=== PATIENT | male | born 1970 | race Caucasian/White ===

== ENCOUNTER → 2017-03-04 | Outpatient (CLI) | payer BC ==
[~2017-03-04] MED LIST: ZESTRIL10 M1 PO; ZYRTEC10 M3 PO
[2017-03-04 10:43] VITALS: BP 128/65
== END ==
LOC: AMSURD 10:33
DX: Z82.49 Family history of ischemic heart disease and other diseases of the circulatory system (principal)

== ENCOUNTER 2018-01-05 12:48 | Emergency (ER) | payer BC ==
[~2018-01-05] VITALS: Ht 193 cm; Wt 136.4 kg
[2018-01-05 12:53] VITALS: BP 144/90
[2018-01-05] MEDS ORDERED: CHILDREN'S ASPI81 M1 PO (12:55)
== END 2018-01-05 13:30 | disposition home or self-care (01) ==
LOC: ED 12:48
DX: S61.210A Laceration without foreign body of right index finger without damage to nail, initial encounter (principal); W45.8XXA Other foreign body or object entering through skin, initial encounter; Y93.89 Activity, other specified; Y92.090 Kitchen in other non-institutional residence as the place of occurrence of the external cause

== ENCOUNTER → 2019-03-29 | Day surgery (SDC) | payer BC ==
[~2019-03-29] MED LIST changes: +CHILDREN'S ASPI81 M1 PO
== END ==
LOC: MSO 08:20
DX: D12.0 Benign neoplasm of cecum (principal); D12.2 Benign neoplasm of ascending colon; D12.8 Benign neoplasm of rectum; D12.5 Benign neoplasm of sigmoid colon; I10 Essential (primary) hypertension; E78.00 Pure hypercholesterolemia, unspecified; E78.5 Hyperlipidemia, unspecified; G47.33 Obstructive sleep apnea (adult) (pediatric); E66.01 Morbid (severe) obesity due to excess calories; Z85.47 Personal history of malignant neoplasm of testis; Z79.82 Long term (current) use of aspirin
CPT/HCPCS: 00811; J2704; J3010; J7120